=== PATIENT | female | born 1970 | race Caucasian/White ===

== ENCOUNTER 2020-02-06 06:20 | Day surgery (SDC) | payer OTHER ==
[~2020-02-06] VITALS: Ht 165.1 cm; Wt 78.0 kg
[~2020-02-06 06:20] MED LIST: BUSPIRONE HCL15 MG PO; FLOMAX0.4 MG PO; FLOVENT DISKUS50 MCG INH; NORCO 5-325 TA1 EACH PO; ZOFRAN4 MG PO; [UNRECOGNIZED DRUG - REMARK]
--- NOTE | 2020-02-06 07:59 | NUR ---
02/06/20 0759 Isabelle Monson 0756-PATIENT ARRIVED TO PACU ON 2L NC AWAKE IS DROWSY LAYING LEFT LATERAL. ABDOMEN SOFT. DENIES PAIN OR NAUSEA. IVF INFUSING.
--- NOTE | 2020-02-06 09:12 | OR ---
[facility] [address], [place] [address] Signed DATE OF OPERATION: 02/06/2020 SURGEON: Yandel Jauregui MD PREOPERATIVE DIAGNOSIS: Screening. POSTOPERATIVE DIAGNOSIS: Minimal internal hemorrhoid tissue. PROCEDURE: Colonoscopy without biopsy. ESTIMATED BLOOD LOSS: None. INDICATIONS: Marjorie is a 49-year-old female asked to see me for her initial screening colonoscopy. She has no lower GI complaints. There is no family history of colon cancer or polyps. I gave her a pamphlet on colonoscopy. We looked at that together along with the risks including, but not limited to gas bloating, crampy abdominal pain, bleeding, perforation requiring surgery, and missed diagnosis. We also discussed the need for IV conscious sedation. She had expressed understanding and wished to proceed. DESCRIPTION OF PROCEDURE: Marjorie was taken into our endoscopy suite and placed in the left lateral decubitus position. She was given a total of 10 mg of Versed and 200 mcg of fentanyl to cover the case. A digital rectal exam was performed and this was unremarkable. The adult colonoscope was introduced and advanced under direct visualization of camera without difficulty. Advancing the scope was not particularly difficult for Marjorie. Nevertheless, she was awaken, did require more sedation and some mild abdominal compression in order to advance the scope into the cecum itself. Her prep was quite excellent. We could easily see the appendiceal orifice and the ileocecal valve. The scope was slowly withdrawn. She had no pathology throughout the entire colon or rectum. Upon retroflexion of scope, she has very minimal internal hemorrhoid tissue. After this, the gas was suctioned out and colonoscope removed. Marjorie tolerated the procedure quite well. RECOMMENDATIONS: Marjorie can return in 10 years for repeat colonoscopy. Electronically Signed By: YANDEL JAUREGUI MD 02/06/20 0912 PATIENT NAME: MARJORIE URIARTE Noel OPERATIVE REPORT DATE OF : 66 REPORT #: [id number] PHYSICIAN: YANDEL JAUREGUI MD PCP: BIANCA YBARRA DO REPORT IS CONFIDENTIAL AND NOT TO BE RELEASED WITHOUT AUTHORIZATION [address] [address] Signed MD GLEN Barker/KARENA /[id number] cc: DO Yandel Sharp MD Copies: BIANCA YBARRA ANDREW L MD ~ Electronically Signed By: YANDEL JAUREGUI MD 02/06/20911 PATIENT NAME: CHAPITOMARJORIE Cohen OPERATIVE REPORT DATE OF : 66 REPORT #: [id number] PHYSICIAN: YANDEL JAUREGUI MD PCP: BIANCA YBARRA DO REPORT IS CONFIDENTIAL AND NOT TO BE RELEASED WITHOUT AUTHORIZATION
--- NOTE | 2020-02-06 11:09 | NUR ---
PT ALERT, ORIENTED AND HERE FOR HER FIRST SCCOPE. PT MENTIONED HER AUNT WILL PICKUP FOLLOWING DC. PT SEEMS TO HAVE DEALT WITH PREP APPROPRIATELY. OR STAFF IN TO TAKE PT. GAVE BLESSING
== END 2020-02-06 08:35 | disposition home or self-care (01) ==
LOC: DS 06:20 → OPS 06:20 → DS 06:45 → OPS 08:35
PROVIDERS: Colon & Rectal Surgery
PROC: 0DJD8ZZ Inspection of Lower Intestinal Tract, Via Natural or Artificial Opening Endoscopic (ICD-10-PCS; principal; 2020-02-06 06:45)
DX: Z12.11 Encounter for screening for malignant neoplasm of colon (principal); K64.8 Other hemorrhoids; I10 Essential (primary) hypertension; F32.9 Major depressive disorder, single episode, unspecified; F41.9 Anxiety disorder, unspecified; Z79.899 Other long term (current) drug therapy; Z88.8 Allergy status to other drugs, medicaments and biological substances
CPT/HCPCS: 99153; G0500; J2250; J3010